=== PATIENT | female | born 1995 | race Caucasian/White ===

== ENCOUNTER 2018-02-25 03:21 | Emergency (ER) | payer OTHER ==
[~2018-02-25] VITALS: Ht 162.6 cm; Wt 65.8 kg
[2018-02-25 03:21] VITALS: BP_SYST 134
[2018-02-25 03:41] VITALS: BP_SYST 134
== END 2018-02-25 03:41 ==
LOC: SED 03:21
DX: F10.129 Alcohol abuse with intoxication, unspecified (principal); V43.52XA Car driver injured in collision with other type car in traffic accident, initial encounter; Y93.89 Activity, other specified; Y92.410 Unspecified street and highway as the place of occurrence of the external cause; Y99.8 Other external cause status
CPT/HCPCS: 99283